=== PATIENT | female | born 1995 | race Caucasian/White ===

== ENCOUNTER 2017-11-05 01:12 | Inpatient (IN) | payer BC ==
[~2017-11-05] VITALS: Ht 157.5 cm; Wt 63.5 kg
[2017-11-05 01:39] VITALS: Ht 157.5 cm; Wt 63.5 kg
[2017-11-05 02:06] LABS: BASOPHIL % 1.6 % (0-2); PLATELET COUNT 391 x10^3mcL (130-400); RED CELL DISTRIBUTION WIDTH 11.7 % (11.5-14.5)
[2017-11-05 02:13] LABS: CALCIUM 8.5 mg/dL (8.5-10.1); CARBON DIOXIDE 28.7 mmol/L (21-32); CHLORIDE SERUM 107 mmol/L (98-107); CREATININE SERUM 0.8 mg/dL (0.6-1.0); GFR1 > 60 mL/min; GLUCOSE SERUM 102 mg/dL (74-106); POTASSIUM SERUM 4.7 mmol/L (3.5-5.1); SODIUM SERUM 145 mmol/L (136-145)
[2017-11-05 02:18] LABS: ALBUMIN 3.9 g/dL (3.4-5.0); ALKALINE PHOSPHATASE 71 U/L (46-116); ALT/SGPT 23 U/L (14-59); AST/SGOT 16 U/L (15-37); BILIRUBIN TOTAL 0.19 mg/dL (0.20-1.00); TOTAL PROTEIN, SERUM 7.8 g/dL (6.4-8.2)
[2017-11-05 04:56] LABS: AMPHETAMINE QUAL UR NONE DETECTED (NEG <=1000)
[2017-11-05] MEDS ORDERED: ZOLOFT100 MG PO (11:38)
[2017-11-05] MEDS ORDERED: WEL100 PO (11:38)
[2017-11-05 12:12] LABS: microscopic required? NO
[2017-11-05 12:22] LABS: urine erythrocyte NEGATIVE (NEGATIVE)
[2017-11-05 13:07] LABS: FREE THYROXINE INDEX 2.3 ug/dL (1.4-4.5)
[2017-11-05 13:08] LABS: CHOLESTEROL/HDL RATIO 2.8; MAGNESIUM 2.4 mg/dL (1.8-2.4); PHOSPHOROUS 4.4 mg/dL (2.5-4.9)
[2017-11-05 13:43] VITALS: BP 130/82
[2017-11-05 21:28] VITALS: BP 125/72
[2017-11-06 06:11] LABS: BASOPHIL % 0.4 % (0-2); PLATELET COUNT 240 x10^3mcL (130-400); RED CELL DISTRIBUTION WIDTH 12.2 % (11.5-14.5)
[2017-11-06 06:14] VITALS: BP 109/63
[2017-11-06 06:28] LABS: CALCIUM 8.2 mg/dL (8.5-10.1); CARBON DIOXIDE 24.7 mmol/L (21-32); CHLORIDE SERUM 107 mmol/L (98-107); CREATININE SERUM 0.7 mg/dL (0.6-1.0); GFR1 > 60 mL/min; GLUCOSE SERUM 91 mg/dL (74-106); POTASSIUM SERUM 3.8 mmol/L (3.5-5.1); SODIUM SERUM 140 mmol/L (136-145)
[2017-11-06 09:13] VITALS: BP 117/78
[2017-11-06 09:17] LABS: T3 TOTAL 0.91 ng/mL
[2017-11-06 12:38] VITALS: BP 115/76
[2017-11-06] MEDS ORDERED: FOL1 PO (17:02)
[2017-11-06] MEDS ORDERED: LIB25 PO (17:02)
[2017-11-06] MEDS ORDERED: THI100 PO (17:03)
[2017-11-06 17:14] VITALS: BP 115/76
[2017-11-06 17:46] VITALS: BP 121/77
== END 2017-11-06 18:08 | disposition home or self-care (01) | DRG 579 ==
LOC: ED 01:12 → MU 11:07 → DU 11:07 → MU 23:55
PROVIDERS: Emergency Medicine; Family Medicine Sports Medicine
PROC: 0KQ90ZZ Repair Right Lower Arm and Wrist Muscle, Open Approach (ICD-10-PCS; principal; 2017-11-05)
DX: S61.511A Laceration without foreign body of right wrist, initial encounter (principal); G92 Toxic encephalopathy; R45.851 Suicidal ideations; F33.2 Major depressive disorder, recurrent severe without psychotic features; F10.229 Alcohol dependence with intoxication, unspecified; X78.1XXA Intentional self-harm by knife, initial encounter; Y93.89 Activity, other specified; Y92.89 Other specified places as the place of occurrence of the external cause; Y99.8 Other external cause status; F12.90 Cannabis use, unspecified, uncomplicated; F41.1 Generalized anxiety disorder; E78.1 Pure hyperglyceridemia
CPT/HCPCS: 83880; 84439; 90714; G0480; J2001; J7030; Q0092